=== PATIENT | male | born 1960 | race African-American/Black ===

== ENCOUNTER 2021-05-04 20:08 | Inpatient (IN) | payer OTHER ==
[2021-05-04 20:55] VITALS: BMI 27.3
[2021-05-04] MEDS ORDERED: ACETAMINOPHEN 1000 MG/100 ML BAG IVPB ONE (21:22)
[2021-05-04] MEDS ORDERED: SODIUM CHLORIDE 0.9% 500 ML INFUS.BAG IV ONE (21:22)
[2021-05-04] MEDS ORDERED: ACETAMINOPHEN INJECTION 100 ML IVPB ONE (23:48)
[2021-05-04 23:52] LABS: BASO % 0.4 % (0-2.0); EOS % 0.5 % (0-4.5); HEMATOCRIT 41.4 % (35.4-49); HEMOGLOBIN 14.1 GM/dL (11.7-16.9); LYMPH % 29.1 % (8-40); MCH 29.8 pg (25.7-33.7); MEAN CELL VOLUME 87.8 fl (80-96); MEAN PLT VOLUME 6.8 fl (7.5-11.1); MONO % 7.6 % (3.8-10.2); NEUT % 62.4 % (42.8-82.8); PLATELET COUNT 293 10^3/uL (134-434); RBC 4.72 M/mm3 (4.00-5.60); RDW 13.6 % (11.9-15.9)
[2021-05-05 00:12] LABS: CHLORIDE 88 mmol/L (98-107); SODIUM 121 mmol/L (136-145)
[2021-05-05 00:15] LABS: CALCIUM 8.1 mg/dL (8.5-10.1)
[2021-05-05 00:16] LABS: ALBUMIN 3.2 g/dl (3.4-5.0); ANION GAP 7 MMOL/L (8-16); BLOOD UREA NITROGEN 3.5 mg/dL (7-18); CO2 26 mmol/L (21-32); GLUCOSE,RANDOM 82 mg/dL (74-106)
[2021-05-05 00:19] LABS: CREATININE 0.7 mg/dL (0.55-1.3); SGOT/AST 26 U/L (15-37); SGPT/ALT 23 U/L (13-61)
[2021-05-05 00:21] LABS: BILIRUBIN,TOTAL 0.6 mg/dL (0.2-1); TOT PROT 7.2 g/dl (6.4-8.2)
[2021-05-05 00:22] LABS: ALK PHOS 96 U/L (45-117)
[2021-05-05 05:20] LABS: MAGNESIUM 1.7 mg/dL (1.8-2.4)
[2021-05-05 05:23] LABS: PHOSPHOROUS 3.6 mg/dL (2.5-4.9)
[2021-05-05] MEDS ORDERED: MAGNESIUM OXIDE 400 MG TABLET (FP) PO ONE (07:42)
[2021-05-05] MEDS ORDERED: SODIUM CHLORIDE 1,000 ML IV SCH (09:00)
[2021-05-05] MEDS: ENOXAPARIN NA (PORCINE) 40 MG/0.4 ML DISP.SYRIN SQ SCH (10:30)
[2021-05-05] MEDS ORDERED: ENOXAPARIN NA (PORCINE) 40 MG/0.4 ML DISP.SYRIN SQ ONE (11:42)
[2021-05-05] MEDS: GABAPENTIN 300 MG CAPSULE PO SCH ×2 (14:13→21:42)
[2021-05-05] MEDS: THIAMINE HCL 100 MG TABLET (FP) PO SCH (14:13)
[2021-05-05] MEDS: DIVALPROEX NA *ER* EXTEND REL 250 MG TABLET.SA PO SCH ×2 (14:13→21:42)
[2021-05-05] MEDS: TAMSULOSIN HCL 0.4 MG CAP PO SCH (14:13)
[2021-05-05] MEDS: DULoxetine HCL 30 MG CAPSULE.DR PO SCH (14:14)
[2021-05-05] MEDS: FOLIC ACID 1 MG TABLET (FP) PO SCH (14:18)
[2021-05-05] MEDS ORDERED: HALOPERIDOL LACTATE 5 MG/ML ONE (15:56)
[2021-05-05] MEDS ORDERED: PT OWN MED DRAWER 7, Y5N ONE (15:59)
[2021-05-05 16:39] LABS: CALCIUM 8.3 mg/dL (8.5-10.1)
[2021-05-05 16:40] LABS: BLOOD UREA NITROGEN 5.9 mg/dL (7-18)
[2021-05-05 16:43] LABS: CREATININE 0.8 mg/dL (0.55-1.3)
[2021-05-05 16:58] LABS: MAGNESIUM 1.8 mg/dL (1.8-2.4)
[2021-05-05 17:02] LABS: PHOSPHOROUS 3.6 mg/dL (2.5-4.9)
[2021-05-05] MEDS: HALOPERIDOL 1 MG TABLET PO SCH (17:34)
[2021-05-06] MEDS: GABAPENTIN 300 MG CAPSULE PO SCH ×3 (07:35→21:14)
[2021-05-06 08:19] LABS: BASO % 0.3 % (0-2.0); EOS % 0.4 % (0-4.5); HEMATOCRIT 39.9 % (35.4-49); HEMOGLOBIN 12.9 GM/dL (11.7-16.9); LYMPH % 37.9 % (8-40); MCH 28.9 pg (25.7-33.7); MCHC 32.3 g/dl (32.0-35.9); MEAN CELL VOLUME 89.5 fl (80-96); MEAN PLT VOLUME 7.7 fl (7.5-11.1); MONO % 8.5 % (3.8-10.2); NEUT % 52.9 % (42.8-82.8); PLATELET COUNT 263 10^3/uL (134-434); RBC 4.46 M/mm3 (4.00-5.60); RDW 13.8 % (11.9-15.9); WHITE BLOOD COUNT 4.9 K/mm3 (4.0-10.0)
[2021-05-06 08:46] LABS: ALBUMIN 2.8 g/dl (3.4-5.0); MAGNESIUM 1.9 mg/dL (1.8-2.4)
[2021-05-06 08:47] LABS: BLOOD UREA NITROGEN 7.4 mg/dL (7-18); CALCIUM 8.3 mg/dL (8.5-10.1)
[2021-05-06 08:49] LABS: CREATININE 0.7 mg/dL (0.55-1.3)
[2021-05-06 08:51] LABS: TOT PROT 5.9 g/dl (6.4-8.2)
[2021-05-06 08:52] LABS: BILIRUBIN,TOTAL 0.7 mg/dL (0.2-1)
[2021-05-06] MEDS: TAMSULOSIN HCL 0.4 MG CAP PO SCH (09:57)
[2021-05-06] MEDS: DIVALPROEX NA *ER* EXTEND REL 250 MG TABLET.SA PO SCH (09:58)
[2021-05-06] MEDS: HALOPERIDOL 1 MG TABLET PO SCH (09:58)
[2021-05-06] MEDS: DULoxetine HCL 30 MG CAPSULE.DR PO SCH (09:58)
[2021-05-06] MEDS: FOLIC ACID 1 MG TABLET (FP) PO SCH (09:58)
[2021-05-06] MEDS: ENOXAPARIN NA (PORCINE) 40 MG/0.4 ML DISP.SYRIN SQ SCH (09:58)
[2021-05-06] MEDS: THIAMINE HCL 100 MG TABLET (FP) PO SCH (09:58)
[2021-05-06] MEDS ORDERED: DIVALPROEX NA *ER* EXTEND REL 250 MG TABLET.SA PO SCH (22:00)
[2021-05-07] MEDS: GABAPENTIN 300 MG CAPSULE PO SCH (05:56)
[2021-05-07 06:19] VITALS: BP 130/71; PULSE 70; TEMP 98.7
[2021-05-07] MEDS ORDERED: TAMSULOSIN HCL 0.4 MG CAP PO SCH (08:30)
[2021-05-07 09:32] LABS: HEMATOCRIT 41.1 % (35.4-49); HEMOGLOBIN 13.4 GM/dL (11.7-16.9); RBC 4.62 M/mm3 (4.00-5.60); WHITE BLOOD COUNT 5.9 K/mm3 (4.0-10.0)
[2021-05-07 09:33] LABS: MCHC 32.6 g/dl (32.0-35.9); MEAN PLT VOLUME 7.2 fl (7.5-11.1); PLATELET COUNT 279 10^3/uL (134-434); RDW 13.6 % (11.9-15.9)
[2021-05-07 09:55] LABS: CALCIUM 8.5 mg/dL (8.5-10.1)
[2021-05-07 09:56] LABS: ALBUMIN 2.9 g/dl (3.4-5.0); MAGNESIUM 2.2 mg/dL (1.8-2.4)
[2021-05-07 09:59] LABS: CREATININE 0.8 mg/dL (0.55-1.3); PHOSPHOROUS 3.8 mg/dL (2.5-4.9)
[2021-05-07 10:00] LABS: BILIRUBIN,TOTAL 0.6 mg/dL (0.2-1); TOT PROT 6.1 g/dl (6.4-8.2)
[2021-05-07] MEDS ORDERED: HALOPERIDOL 1 MG TABLET PO SCH (10:00)
[2021-05-07] MEDS ORDERED: ENOXAPARIN NA (PORCINE) 40 MG/0.4 ML DISP.SYRIN SQ SCH (10:00)
[2021-05-07] MEDS ORDERED: FOLIC ACID 1 MG TABLET (FP) PO SCH (10:00)
[2021-05-07] MEDS ORDERED: DULoxetine HCL 30 MG CAPSULE.DR PO SCH (10:00)
[2021-05-07] MEDS ORDERED: THIAMINE HCL 100 MG TABLET (FP) PO SCH (10:00)
== END 2021-05-07 10:51 | disposition left against medical advice (07) | DRG 425 ==
LOC: JER 20:08 → JERBED 05-05 01:27 → J4W 05-05 13:06 → J8W 05-06 16:48
PROVIDERS: ADMIT Internal Medicine; ATTEND Internal Medicine
DX: E87.1 Hypo-osmolality and hyponatremia (principal); G93.41 Metabolic encephalopathy; M48.02 Spinal stenosis, cervical region; E88.09 Other disorders of plasma-protein metabolism, not elsewhere classified; F10.10 Alcohol abuse, uncomplicated; E83.42 Hypomagnesemia; W18.39XA Other fall on same level, initial encounter; Y92.89 Other specified places as the place of occurrence of the external cause; F20.1 Disorganized schizophrenia
CPT/HCPCS: 36415; 70450-TC; 72125-TC; 80048; 80053; 80061; 82550; 82553; 83036; 83735; 84100; 84439; 84443; 84484; 85025; 85027; 93005; 93010; 93306-TC; 93880-TC; 99285-25; C9803-CS; U0003; U0005